=== PATIENT | male | born 1965 | race African-American/Black ===

== ENCOUNTER 2020-09-01 13:02 | Observation (INO) | payer MEDICARE ==
[~2020-09-01] VITALS: Wt 135.7 kg
[2020-09-01 17:58] VITALS: BP 158/86; PULSE 83; TEMP 98.3
[2020-09-01 19:09] VITALS: BP 157/89; PULSE 89; TEMP 98.7
[2020-09-01 19:18] LABS: ALBUMIN 4.4 gm/dL (3.5-5.0); BASO % 0.4 % (0.0-2.0); BILIRUBIN,TOTAL 0.5 mg/dL (0.0-1.0); CALCIUM 9.4 mg/dL (8.4-10.2); CREATININE, serum 0.82 (0.66-1.25); EOS # 0.4 (0.0-0.7); EOS % 5.1 % (0-4.0); GRAN # 3.8 (1.4-6.5); GRAN % 50.8 % (42.2-75.2); HEMATOCRIT 47.5 % (42.0-52.0); HEMOGLOBIN 15.8 g/dl (13.5-18.0); LYMPH # 2.6 (1.2-3.4); LYMPH % 35.4 % (20.0-51.0); MAGNESIUM 1.7 mg/dL (1.6-2.3); MEAN CELL VOLUME 85 fl (80.0-100.0); MEAN CORPUSCULAR HEMOGLOBIN 28 pg (27.0-31.0); MEAN CORPUSCULAR HGB CONC 33 g/dl (33.0-37.0); MEAN PLATELET VOLUME 11.9 fl (7.4-10.4); MONO # 0.6 (0.1-0.6); MONO % 8.2 % (1.7-9.3); PLATELET COUNT 217 K/mm3 (130-400); POTASSIUM 3.6 mmol/L (3.4-5.0); RED BLOOD COUNT 5.61 M/mm3 (4.20-5.60); REDCELL DISTRIBUTION WIDTH-CV 14.4 % (11.5-14.5); TOTAL PROTEIN 8.3 gm/dL (6.4-8.2)
[2020-09-01 19:23] LABS: PARTIAL THROMBOPLASTIN TIME 33.6 SECONDS (26.0-37.0); PROTHROMBIN TIME 11.1 SECONDS (9.7-12.8)
[2020-09-01] MEDS ORDERED: NORVASC 10MG10 MG PO (19:47)
[2020-09-01] MEDS ORDERED: COREG 25MG25 MG/TAB PO (19:47)
[2020-09-01] MEDS ORDERED: REFRESH PLUS 00.4 M1 OP (19:47)
[2020-09-01] MEDS ORDERED: HYGROTON 2525 MG/TAB PO (19:48)
[2020-09-01] MEDS ORDERED: TRULICITY1.5 MG/0.5 SQ (19:48)
[2020-09-01] MEDS ORDERED: INSULIN AS100 UNIT/3 SQ (19:49)
[2020-09-01] MEDS ORDERED: LANTUS100 U/ML SQ (19:49)
[2020-09-01] MEDS ORDERED: LIDODERM 5% PATC1 EA TP (19:49)
[2020-09-01] MEDS ORDERED: KEPPRA1000 MG PO (19:49)
--- NOTE | 2020-09-01 20:04 | NUR ---
Patient arrived on previous shift, assessment completed at this time, telemetry in use, call dyer w/i reach, ate 100% of dinner at this time, denies pain, denies shortness of breath, updated on plan of care- verbalized understanding, patient is alert, oriented x 4, able to verbalize all needs, independently transfers and ambulates in hallway.
[2020-09-01 23:58] VITALS: BP 124/71; PULSE 69; TEMP 98.3
[2020-09-02] VITALS (15 sets, daily range): BP systolic 116–138; BP diastolic 52–81; PULSE 63–76; TEMP 97.9–98.9
--- NOTE | 2020-09-02 05:32 | NUR ---
Awake, alert, oriented x4, NPO status maintained, denies pain, ambulating in room w/o issue, denies needs at this time.
[2020-09-02 06:52] LABS: BASO % 0.4 % (0.0-2.0); EOS # 0.3 (0.0-0.7); EOS % 6.1 % (0-4.0); GRAN # 1.9 (1.4-6.5); GRAN % 36.6 % (42.2-75.2); HEMATOCRIT 45.4 % (42.0-52.0); HEMOGLOBIN 14.8 g/dl (13.5-18.0); LYMPH # 2.3 (1.2-3.4); MEAN CELL VOLUME 86 fl (80.0-100.0); MEAN CORPUSCULAR HEMOGLOBIN 28 pg (27.0-31.0); MEAN CORPUSCULAR HGB CONC 33 g/dl (33.0-37.0); MEAN PLATELET VOLUME 11.7 fl (7.4-10.4); MONO # 0.6 (0.1-0.6); MONO % 10.9 % (1.7-9.3); PLATELET COUNT 215 K/mm3 (130-400); RED BLOOD COUNT 5.29 M/mm3 (4.20-5.60); REDCELL DISTRIBUTION WIDTH-CV 14.4 % (11.5-14.5)
[2020-09-02 07:07] LABS: ANION GAP 4 mmol/L (7-16); BLOOD UREA NITROGEN 10 mg/dL (9-20); CALCIUM 8.9 mg/dL (8.4-10.2); CARBON DIOXIDE 28 mmol/L (22-30); CHLORIDE 106 mmol/L (98-107); CREATININE, serum 0.86 (0.66-1.25); GLUCOSE 123 mg/dL (74-106); POTASSIUM 3.1 mmol/L (3.4-5.0); SODIUM 138 mmol/L (137-145)
[2020-09-02 07:27] LABS: TROPONIN-I < 0.012 ng/mL (0.000-0.035)
[2020-09-02 07:30] LABS: CHOLESTEROL 220 mg/dL (120-200); CHOLESTEROL RISK RATIO 5.2; HDL CHOLESTEROL 42 mg/dL; LDL CHOLESTEROL 138 mg/dL; TRIGLYCERIDE 202 mg/dL
--- NOTE | 2020-09-02 09:19 | NUR ---
Patient to industrial laborer with industrial laborer staff at this time.
--- NOTE | 2020-09-02 09:24 | NUR ---
Cardiac cathead operator nurse Esther transported patient to cathead operator. Esther notified prior to taking patient that patients IV was infiltrated and he had not yet received a.m. meds. Esther RN, reported she will start IV and patient not receiving a.m. meds prior to cardiac cath was ok.
--- NOTE | 2020-09-02 10:30 | NUR ---
Patient alert and oriented, answers questions appropriately. See assessment. Heart tones strong and even, radial pulses palpable. No c/o chest/jaw pain or pressure. No other c/o at this time.
--- NOTE | 2020-09-02 10:35 | NUR ---
SEE MERGE FOR ALL MEDICATION ADMINISTRATION TIMES INTRA AND POST SEDATION ASSESSMENTS
--- NOTE | 2020-09-02 11:08 | NUR ---
Patient returns from packing house laborer at this time. Assessment unchanged except right wrist radial site with TR band in place. No drainage noted at site.
--- NOTE | 2020-09-02 11:57 | NUR ---
Margaret met with the pt who stated his preference to return home once medically stable. The pt lives at home and is , but seperated. The pt NK is Lesly Zheng (ph# [phone]). The pt is independent with his ADLs and uses a blood pressure, bipap,glucmeter. The pt gets his medications from [place] and [facility] pharmacy and has no trouble obtaining the cost. The pt PCP is at [place], Dr. Charles. The pt has a DPOA-HC. No other needs stated at this time. Sw to follow up as needed. D/c: Home
--- NOTE | 2020-09-02 13:43 | NUR ---
First visit from the orthotic finish grinding technician. No needs right now.
--- NOTE | 2020-09-02 19:12 | NUR ---
Awake, alert, oriented x4 , good appetite noted, ate 100% of dinner,snack offered, no s/s of hypo/hyper glycemia, ambulates with steady gait, telemetry in use, updated on plan of care- verbalized understanding, telemetry in use.
[2020-09-03 00:02] VITALS: BP 137/74; PULSE 67; TEMP 98.3
[2020-09-03 03:51] VITALS: BP 127/64; PULSE 75; TEMP 98.4
[2020-09-03 06:13] LABS: BASO % 0.5 % (0.0-2.0); EOS # 0.3 (0.0-0.7); EOS % 6.1 % (0-4.0); GRAN # 2.3 (1.4-6.5); GRAN % 41.3 % (42.2-75.2); HEMATOCRIT 45.9 % (42.0-52.0); HEMOGLOBIN 14.8 g/dl (13.5-18.0); LYMPH # 2.3 (1.2-3.4); LYMPH % 41.4 % (20.0-51.0); MEAN CELL VOLUME 86 fl (80.0-100.0); MEAN CORPUSCULAR HEMOGLOBIN 28 pg (27.0-31.0); MEAN CORPUSCULAR HGB CONC 32 g/dl (33.0-37.0); MEAN PLATELET VOLUME 11.6 fl (7.4-10.4); MONO # 0.6 (0.1-0.6); MONO % 10.5 % (1.7-9.3); PLATELET COUNT 213 K/mm3 (130-400); RED BLOOD COUNT 5.34 M/mm3 (4.20-5.60); REDCELL DISTRIBUTION WIDTH-CV 14.3 % (11.5-14.5)
[2020-09-03 06:25] LABS: CALCIUM 8.9 mg/dL (8.4-10.2); CREATININE, serum 0.91 (0.66-1.25); POTASSIUM 3.7 mmol/L (3.4-5.0)
[2020-09-03 07:37] VITALS: BP 139/62; PULSE 69; TEMP 98.1
--- NOTE | 2020-09-03 10:19 | NUR ---
0700 PT RECEIVED RESTING IN BED. NO S/S OF DETRESS NOTED. RIGHT WRIST SOFT, NO BLEEDING, PULSE PRESENT. PT DENIES PAIN AT THIS TIME. CALL-LIGHT IN REACH. BED IN LOW POSITION. WILL CONTINUE TO MONITOR. 0830 PT ATE HIS MEAL. 0900 MEDICATIONS ADMINISTERED ORDERED. 1000 DR PEREZ AT THE BEDSIDE AND OK TO DC PT. AWAITING DC FROM DR MEHTA.
[2020-09-03] MEDS ORDERED: BRILINTA90 MG PO (10:30)
[2020-09-03] MEDS ORDERED: LIPITOR 40MG TA40 MG PO (10:31)
[2020-09-03] MEDS ORDERED: ASPIRIN E.C. 8181 MG PO (10:32)
[2020-09-03] MEDS ORDERED: COZAAR 25MG25 MG/TAB PO (10:32)
[2020-09-03] MEDS ORDERED: INSULIN AS100 UNIT/3 SQ (10:35)
[2020-09-03 11:31] VITALS: BP 123/68; PULSE 72; TEMP 97.3
--- NOTE | 2020-09-03 13:23 | NUR ---
124 DISCHARGE INSTRUCTIONS REVIEWED WITH PT. PT VERBALIZES THAT HE UNDERSTANDS. ALL QUESTIONS ANSWERED. PT DENIES HAVING CHEST PAIN. IV AND TELE MONITOR DISCONTINUED. PT AWAITING HIS TRANPORTATION HOME. PT HAS ALL HIS BELONGINGS 1620 PT TRANSPORTED VIA TO FAMILY VE[facility]LE.
== END 2020-09-03 13:06 | disposition home or self-care (01) ==
LOC: MEDICAL 13:02 → SURG 18:27
PROVIDERS: Nurse Practitioner Family; ADMIT Student in an Organized Health Care Education/Training Program
DX: I25.10 Atherosclerotic heart disease of native coronary artery without angina pectoris (principal); I11.0 Hypertensive heart disease with heart failure; I50.20 Unspecified systolic (congestive) heart failure; I21.4 Non-ST elevation (NSTEMI) myocardial infarction; E78.5 Hyperlipidemia, unspecified; E11.40 Type 2 diabetes mellitus with diabetic neuropathy, unspecified; E66.9 Obesity, unspecified; K76.0 Fatty (change of) liver, not elsewhere classified; G47.33 Obstructive sleep apnea (adult) (pediatric); G40.909 Epilepsy, unspecified, not intractable, without status epilepticus; K58.9 Irritable bowel syndrome, unspecified; M54.9 Dorsalgia, unspecified; G89.29 Other chronic pain; R77.8 Other specified abnormalities of plasma proteins; C44.90 Unspecified malignant neoplasm of skin, unspecified; Z95.1 Presence of aortocoronary bypass graft; Z79.4 Long term (current) use of insulin; Z99.89 Dependence on other enabling machines and devices; Z79.899 Other long term (current) drug therapy; Z80.0 Family history of malignant neoplasm of digestive organs
CPT/HCPCS: C1725; C1769; C1874; C1887; C9600; G0378; G0379; J1644; J1650; J1815; J2250; J3010; J7030